=== PATIENT | female | born 1930 | race Caucasian/White ===

== ENCOUNTER 2016-10-25 00:25 | Inpatient (IN) | payer MEDICARE, BC ==
[~2016-10-25] VITALS: Ht 157.5 cm; Wt 60.6 kg
--- NOTE | ~2016-10-25 | CO ---
Unit #: [id number] #: [id number] Patient: PIPER VARGAS [id number] [address] [place], [place] [address] [id number] MR#: [id number] NAME: PIPER VARGAS ROOM: [facility] Age: 85 Sex: F Admission Date: 10/25/2016 : 1930 Attending Physician: Feliberto Bailey M.D. Primary Care Physician: Feliberto Bailey M.D. Consultation Date: 10/25/2016 CONSULTATION REPORT REASON FOR CONSULTATION 1. Rectal bleeding. 2. Blood loss anemia. Thank you very much for asking us to see Ms. Vargas. HISTORY OF PRESENT ILLNESS She is an 85-year-old white female, who overall was doing well until she had a bowel movement yesterday and showed quite a bit of bright red blood. She denies any hematemesis. She has had no melena. She is on aspirin on a regular basis as well as Coumadin. She came to the emergency room for evaluation. She was found to have an INR of 9.3 with a PT of 101.8. Her hemoglobin was found to be 8.8 with a normal MCV of 89.4. She received vitamin K and is in the process of receiving fresh frozen plasma. We were asked to see at this time for further evaluation. She states she has not had a colonoscopy first many years, but has a history of diverticulosis. She has been having regular bowel movements that have been normal prior to this time. She is on Coumadin for atrial fibrillation. Her family is present at the bedside. ALLERGIES No known medical allergies. MEDICATIONS Ranexa, Pravachol, Ecotrin, isosorbide dinitrate, K-Dur, Prilosec, Lasix, Norvasc, Coumadin, and Rythmol. PAST SURGICAL HISTORY Right knee replacement, lumpectomy of left breast, pacemaker placement, and hysterectomy. PAST MEDICAL HISTORY Heart disease, hypertension. SOCIAL HISTORY No tobacco or alcohol use. REVIEW OF SYSTEMS Negative except for above. IMMUNIZATION STATUS Unknown. FAMILY HISTORY Unit #: [id number] #: [id number] Patient: PIPER VARGAS Noncontributory. PHYSICAL EXAMINATION GENERAL: Well-developed, thin white female, in no apparent distress. Awake, alert, and oriented x3. VITAL SIGNS: Temperature is 98, pulse 83, respirations 18, blood pressure is 101/52. NECK: Supple. No thyromegaly or adenopathy. Sclerae nonicteric. Extraocular movements are intact. ABDOMEN: Flat, soft, mild diffuse tenderness, but no rebound, peritoneal signs, or masses. No palpable hernias. EXTREMITIES: No calf tenderness. No erythema. DIAGNOSTIC STUDIES LABORATORY RESULTS: Reveal the patient to have a CMP that shows a glucose of 104, BUN 36, and normal liver function studies. PT is 101.8 with an INR of 9.3. Her hemoglobin is 8.8 with a hematocrit 26.5, MCV of 89.4, white count is 7.1, platelet count 200,000. IMPRESSION An 85-year-old white female with bright red blood per rectum, who is significantly over anticoagulated. We have recommended . She has already received vitamin K and fresh frozen plasma. We will recheck this 1 hour after . After she has her coag studies at a safer level, we feel she should have upper and lower endoscopy performed. All this has been fully discussed with the patient's family in detail. They understand completely and requests to proceed. Dictated by... Zbigniew Pack/nancy TD: 10/25/2016 17:02 JOB #: [id number] CC: Feliberto Bailey M.D. [facility] Nirmal Shaw M.D. CONSULTATION REPORT Page 1 of 1 X Amadeo Lindsey MD X CONSULTATION REPORT
--- NOTE | ~2016-10-25 | CO ---
Unit #: [id number] #: [id number] Patient: PIPER GIL [id number] [facility]. [place], [place] [address] [id number] MR#: [id number] NAME: PIPER GIL ROOM: [facility] Age: 85 Sex: F Admission Date: 10/25/2016 : 1930 Attending Physician: Feliberto Bailey M.D. Primary Care Physician: Feliberto Bailey M.D. Consultation Date: 10/25/2016 CONSULTATION REPORT REASON FOR CONSULTATION Cardiovascular management. HISTORY OF PRESENT ILLNESS This is an 85-year-old white female, previously known to our group as well as Dr. Shaw. The patient underwent a 2D echocardiogram in 10/2010, which revealed ejection fraction of 55% to 60% with heavily calcified mitral apparatus, and moderate mitral regurgitation. There was also [id number] tricuspid regurgitation and mild aortic stenosis. Right ventricular systolic pressure was elevated at 40 to 50 mmHg. The patient was treated for atrial fibrillation in 2010. She underwent direct cardioversion with conversion to sinus rhythm. Subsequently, she underwent permanent pacemaker placement. She does have a history of coronary artery disease and underwent PCI and stent also in 2010, but details are unavailable. She follows with Dr. Shaw as an outpatient, but is reportedly overdue for an appointment. She has not had her pacemaker checked in a while. She presented to the emergency department with complaints of weakness that started yesterday. She states that she was called and told to increase her Coumadin. She took a dose of Coumadin, but does not recall how much. Later in the afternoon, she went to the bathroom and noticed bright red rectal bleeding. There was a large amount. EMS was dispatched and she was brought to the hospital. The patient admits to some dizziness, but no syncope. There are no reports of shortness of breath. She denies chest pain currently, but states that she did have an episode of chest pain last night that was in her left anterior chest. There was no radiation to the neck, jaw, shoulders, or arms. There were no associated symptoms. She denies palpitations or lower extremity edema. She states that she has been taking her medications, but cannot recall details of her Coumadin. According to documentation, she has dementia. In the emergency department, her initial hemoglobin was 8.8, platelets were 200. Chemistry was stable. INR was 9.3. She was given 10 mg of vitamin K x1 dose. She was admitted for further management and FFP was ordered. Cardiology was consulted for cardiovascular management. Gastroenterology has also been consulted for rectal bleeding. PAST MEDICAL HISTORY 1. Coronary artery disease, status post PCI and stent reportedly in 08/2010. Records unavailable. 2. 2D echocardiogram on 10/31/2010 revealed an ejection fraction 55% to 60%. Right ventricle and right atrium mildly dilated. Left atrium moderately dilated. Heavily calcified mitral apparatus. Moderate mitral Unit #: [id number] #: [id number] Patient: JEFFERY,PIPER regurgitation. Nrcg-ep-tphnydio tricuspid regurgitation. Mild aortic stenosis. Right ventricular systolic pressure of 40 to 50 mmHg. 3. Atrial fibrillation, status post direct current cardioversion with conversion to sinus rhythm, 10/31/2010. 4. Permanent pacemaker placement reportedly 11/2010. 5. Anemia with GI bleed, status post EGD in 10/2010 with medium hiatal hernia and mild gastritis. 6. Hypertension. 7. Hyperlipidemia. 8. GERD. 9. Osteoarthritis. 10. Dementia. 11. Hypothyroidism. 12. Nonsmoker. PAST SURGICAL HISTORY 1. Cardiac catheterization, PCI and stent. 2. EGD. 3. Colonoscopy. 4. DC cardioversion. 5. Permanent pacemaker. HOME MEDICATIONS Pravastatin 80 mg p.o. daily, warfarin 2 mg p.o. daily, Norvasc 10 mg p.o. daily, levothyroxine 150 mcg p.o. daily, metoprolol tartrate 12.5 mg p.o. b.i.d., Lasix 20 mg p.o. daily, amiodarone 200 mg p.o. daily, isosorbide dinitrate 30 mg p.o. daily, Prilosec 10 mg p.o. daily. ALLERGIES No known drug allergies. SOCIAL HISTORY The patient lives alone. She has a cane for ambulation. She is a lifetime nonsmoker. There are no reports of alcohol or illicit drug use. FAMILY HISTORY Significant for heart disease. Her brother has had reoperative coronary artery bypass grafting. REVIEW OF SYSTEMS Ten-point review of systems negative except for details noted above in HPI. PHYSICAL EXAMINATION VITAL SIGNS: Temperature 98, pulse 83, blood pressure 101/52. CONSTITUTIONAL: This is an 85-year-old white female, in no acute distress. SKIN: Warm and dry. NECK: Supple. No jugular vein distention. No hepatojugular reflux. Normal carotid upstrokes. No carotid bruits auscultated. HEART: S1 and S2. Irregularly irregular. No murmurs, rubs, or gallops. LUNGS: Bilateral breath sounds, but occasional wheezes, left greater than right. ABDOMEN: Soft, nontender, and nondistended. Positive bowel sounds auscultated in all 4 quadrants. No ascites noted. EXTREMITIES: Bilateral extremities have no pretibial or pitting edema. DP and PT pulses are 2+. Capillary refill is less than 2 seconds. DIAGNOSTIC STUDIES Unit #: [id number] #: [id number] Patient: PIPER GIL LABORATORY RESULTS: White blood cell count 7.1, hemoglobin 8.8, hematocrit 26.5, platelets 200. Sodium 138, potassium 4.6, chloride 106, CO2 of 27, BUN 36, creatinine 0.8, glucose 104, INR 9.3. CARDIOVASCULAR: EKG reveals ventricular paced rhythm with underlying atrial flutter. Left axis deviation. Left bundle-branch block. Age undetermined. IMPRESSION 1. Acute gastrointestinal bleed. 2. Anemia. 3. Supratherapeutic INR. 4. Recurrent atrial fibrillation, age undetermined. 5. History of permanent pacemaker. 6. Possible anginal equivalent with history of coronary artery disease, percutaneous coronary intervention and stent in 2010. 7. Hypertension. 8. Hyperlipidemia. 9. Dementia. 10. Hypothyroidism. PLAN 1. The patient presented to the hospital with complaints of rectal bleeding. She was admitted and started on Protonix and IV fluids. Gastroenterology was consulted. 2. INR was elevated at 9.3. She was given vitamin K and FFP. 3. We will continue with reversal of anticoagulation. 4. The patient's pacemaker will be interrogated to evaluate how long she has been in atrial fibrillation. 5. We will continue conservative management. If she has been in atrial fibrillation for long, we will stop amiodarone. That would make Coumadin control easier and safer. 6. The patient has mild wheezing on exam. We will obtain a chest x-ray and give one dose of IV Lasix. 7. Her labs and EKG will be trended. Dictated by... Nimisha Gamez APRN for Zbigniew aSntana TD: 10/27/2016 01:47 JOB #: [id number] CONSULTATION REPORT Page 1 of 1 X X CONSULTATION REPORT
--- NOTE | ~2016-10-25 | CO ---
Unit #: [id number] #: [id number] Patient: PIPER VARGAS [id number] [address] [place], [place] [address] [id number] I MR#: [id number] NAME: PIPER VARGAS ROOM: [facility] Age: 85 Sex: F Admission Date: 10/25/2016 : 1930 Attending Physician: Feliberto Bailey M.D. Primary Care Physician: Feliberto Bailey M.D. Consultation Date: 10/27/2016 CONSULTATION REPORT REASON FOR CONSULTATION ICU. HISTORY OF PRESENT ILLNESS An 85-year-old female, who carries a diagnosis of dementia, but gives a reasonable history. She apparently noticed bright red blood per rectum. She also was found to have Coumadin toxicity and has been reversed. Initial INR was 9.3. She underwent EGD and that formal report is pending, but apparently had ulcers and underwent intervention. She is in the intensive care unit. No active bleeding has been observed, although her hemoglobin has dropped a bit. She denies hematemesis, melena, hematochezia, although she noticed hematochezia prior to admission. She had some mild abdominal pain, but that has resolved. She denies chest pain or shortness of breath. PHYSICAL EXAMINATION GENERAL: Reveals an elderly female, in no acute distress. On low-flow oxygen. VITAL SIGNS: She is afebrile, pulse is 101, respiratory rate is 24, blood pressure is 107/55, weight 221 pounds. HEENT: Pupils are equal, round, and reactive to light. Sclerae anicteric. Head atraumatic. Mucous membranes are moist. NECK: Supple. No supraclavicular or cervical adenopathy appreciated. CHEST: Equal breath sounds. No wheeze, stridor, or consolidation. Posterior auscultation unremarkable. CARDIAC: Reveals a regular rhythm, possible soft murmur. No gallop. ABDOMEN: Soft, nontender. No hepatomegaly or rebound. EXTREMITIES: Show SCD stockings to be in place. There is some trace edema. NEUROLOGIC: Grossly intact. No focal motor or sensory deficits. SKIN: Warm and dry without rash. DIAGNOSTIC STUDIES IMAGING STUDIES: Chest x-ray, unremarkable. LABORATORY RESULTS: BUN is 15, creatinine is 0.9. Troponins are negative. INR now is normal. White blood cell count 7.3, hemoglobin 7.3, platelet count 114. Rhythm strips, atrial fibrillation. IMPRESSION 1. Gastrointestinal bleeding. 2. Atrial fibrillation. 3. Coumadin toxicity corrected. Unit #: [id number] #: [id number] Patient: PIPER VARGAS 4. Coronary artery disease. 5. Multiple medical problems listed above. PLAN Still anemic with possible bleeding, but no observed bleeding. She is hemodynamically stable. We will start pulmonary hygiene maneuvers and continued ICU observation. Thank you very much for allowing us to participate in the care of Ms. Vargas. Dictated by... Maykel Webber M.D. JOSE/nancy TD: 10/28/2016 06:29 JOB #: [id number] CC: Zbigniew Bain M.D. CONSULTATION REPORT Page 1 of 1 X Maykel Webber MD X CONSULTATION REPORT
--- NOTE | ~2016-10-25 | EKG ---
PATIENT: PIPER GIL UNIT #: [id number] Ventricular Rate: 68 BPM Atrial Rate: 64 BPM QRS Duration: 162 ms Q-T Interval: 522 ms QTC Calculation(Bezet): 555 ms Calculated R Robards: -35 degrees Calculated T Robards: 98 degrees Diagnosis Line: Demand pacemaker; interpretation is based on Diagnosis Line: intrinsic rhythm Diagnosis Line: Atrial fibrillation with premature ventricular or Diagnosis Line: aberrantly conducted complexes Diagnosis Line: Left axis deviation Diagnosis Line: Left bundle branch block Diagnosis Line: Abnormal ECG Diagnosis Line: No previous ECGs available Diagnosis Line: Confirmed by YOLANDA HUBER MD ([id number]) on 10/25/2016 Diagnosis Line: 11:14:59 PM INTERPRETING MD: MAYO DAVALOS
--- NOTE | ~2016-10-25 | DS ---
Unit #: [id number] #: [id number] Patient: PIPER GIL [id number] [address] [place], [place] [address] [id number] I MR#: [id number] NAME: PIPER GIL ROOM: 563 Age: 85 Sex: F Admission Date: 10/25/2016 : 1930 Discharge Date: 11/01/2016 Attending Physician: Feliberto Bailey M.D. Primary Care Physician: Feliberto Bailey M.D. DISCHARGE SUMMARY PRINCIPAL DISCHARGE DIAGNOSES 1. 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 2. Coumadin toxicity. 3. Severe anemia. 4. Coronary artery disease. 5. History of congestive heart failure. 6. Hypertension. 7. Hyperlipidemia. 8. Chronic atrial fibrillation. 9. Dementia. 10. Osteoarthritis. 11. Hypothyroidism. 12. Status post permanent pacemaker. PROCEDURES 1. Colonoscopy 10/26/16. 2. EGD with hemo clipping x2 Dieulafoy lesion third portion of the duodenum with injection of submucosal epinephrine of the Dieulafoy lesion. 3. Transfusion 2 units of FFP 10/25/16. 4. Transfusion 2 units of packed RBCs 10/25/16. 5. Transfusion 1 unit of packed RBCs 10/26/16. 6. Transfusion 1 unit packed RBCs 10/26/16. 7. Transfusion 2 units packed RBCs 10/27/16. CONSULTANTS 1. [facility]. 2. Dr. Faulkner. REASON FOR HOSPITALIZATION The patient is an 85-year-old white female with history of coronary artery disease, CHF, hypertension, hyperlipidemia, A fib, permanent pacemaker, chronic anticoagulation therapy, dementia, osteoarthritis, hypothyroidism. Presented to the emergency room with bright red blood per rectum. In the ER she had a hemoglobin of 8.8, an INR of 9.3, a BUN of 36. The rest of her labs were unremarkable. Last EGD was October of 2010, at which time she was found to have a hiatal hernia and gastritis. Her last colonoscopy was in April of 2010, and the patient was admitted. HOSPITAL COURSE The patient was admitted to the ICU. She was given vitamin K, FFP. Serial H and H's were obtained. SCDs were placed for DVT prophylaxis. She was made NPO, started on IV fluids. IV proton pump inhibitors. Surgery was Unit #: [id number] #: [id number] Patient: PIPER GIL consulted. It was discovered soon after admission per her family that the patient was taking a 3 mg warfarin instead of 1.5 mg, which was prescribed and written on her bottle, as explanation for her Coumadin toxicity. In any case, the patient's PT and INR was reversed quickly. Her hemoglobin fell. She required multiple blood transfusions as mentioned above. She eventually was stabilized and underwent EGD and colonoscopy on the . EGD showed a Dieulafoy lesion, which was injected with epinephrine and clipped. Colonoscopy was unremarkable. The patient developed some diarrhea, and stool for C. diff. was ordered, but no specimen was sent. It was sent once, but they stated it was a bad specimen, whatever that means, and the toxin was not performed. TSH was checked and was 0.59. Cardiac enzymes were checked and within normal limits. Lipid profile was checked with LDL of 36. Eventually her bleeding resolved. She developed some dysuria yesterday. Urinalysis was ordered. She had 2+ leukocytes with 10-25 white cells but no bacteria and nitrite negative and no other abnormalities. Her BMP, phos and mag this morning are completely normal except for a calcium of 8.1. Her PT-INR this morning, after being started back on a small dose of Coumadin, was 1.1. Her CBC this morning shows a hemoglobin of 10, which is stable. She had 2 bowel movements yesterday without any evidence of blood. 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 She is currently on healthy heart diet as tolerates. CURRENT MEDICATIONS 1. Warfarin 2 mg Sunday through Sunday (to be held if her INR is greater than 3). 2. Claritin 10 mg p.o. daily p.r.n. allergies. 3. Lopressor 25 mg p.o. b.i.d. 4. Lasix 20 mg p.o. daily p.r.n. edema. 5. Chloraseptic spray at the bedside for use p.r.n. 6. Tendoy 5/325 mg 1 tab t.i.d. p.r.n. pain. 7. Protonix 40 mg p.o. b.i.d. 8. Levothyroxine 150 mcg daily. 9. Isosorbide dinitrate 30 mg daily. FOLLOW-UP She needs to have a followup [employer] in 2 days. She has an INR ordered by cardiology for 11/07/16 to be called to the tobacco sorter's office. She also has a followup scheduled with them in 4-[address] Shaw (1) discharge. Dictated by... Feliberto Bailey M.D. TOSHIA/terence TD: 11/01/2016 14:15 JOB #: [id number] Unit #: [id number] #: [id number] Patient: PIPER GIL DISCHARGE SUMMARY Page 1 of 1 X Feliberto Bailey MD X DISCHARGE SUMMARY
--- NOTE | ~2016-10-25 | OR ---
Unit #: [id number] #: [id number] Patient: PIPER GIL [id number] [address] [place], [place] [address] [id number] I MR#: [id number] NAME: PIPER GIL ROOM: [facility] Date of Procedure: 10/26/2016 Admission Date: 10/25/2016 Surgeon: Amadeo Lindsey M.D. : 1930 Attending Physician: Feliberto Bailey M.D. Primary Care Physician: Feliberto Bailey M.D. OPERATIVE REPORT PREOPERATIVES DIAGNOSES 1. Gastrointestinal bleeding. 2. Blood loss anemia. POSTOPERATIVE DIAGNOSES 1. Gastrointestinal bleeding. 2. Blood loss anemia. PROCEDURES PERFORMED 1. Esophagogastroduodenoscopy x2. 2. Hemoclip x2 of Dieulafoy lesion, third portion of duodenum. 3. Injection of submucosal epinephrine of Dieulafoy lesion, third portion of duodenum. 4. Colonoscopy to terminal ileum. ANESTHESIA Monitored anesthesia care. FINDINGS The patient was found to have a bleeding Dieulafoy lesion at third portion of duodenum. Hemostasis was obtained with hemoclip x2 and submucosal epinephrine injection circumferentially with good hemostasis. The patient was found to have a large amount of old blood present within the terminal ileum and colon, but no evidence of active bleeding. SPECIMENS None. COMPLICATIONS None apparent. CONDITION The patient tolerated the procedure well. INDICATIONS FOR PROCEDURE The patient is an 85-year-old white female. She presented with GI bleeding and blood loss anemia. She was found to have an INR of 9.1. She had correction of this with vitamin K and FFP. She presents at this time for upper and lower endoscopy. DESCRIPTION OF PROCEDURE After obtaining informed consent, the patient was brought to the endoscopy Unit #: [id number] #: [id number] Patient: PIPER GIL suite and after adequate monitored anesthesia care, had the endoscope placed through the mouth into upper esophagus under direct vision. It was slowly advanced down the esophagus. There was blood present within the distal esophagus and in the stomach. It was only a moderate amount and appeared to be older blood. The scope was passed through the pylorus into the duodenum. There was a fair amount of bright red blood present in the duodenum and into the third and fourth portion of the duodenum. We were able to advance the scope into the jejunum and there appeared to be bright red blood present there as well. We were able to irrigate this area out and there did not appear to be any active bleeding in the proximal jejunum or in the fourth portion and at that point in time, we were unable to visualize a bleeding site in the third or second portion of the duodenum. The duodenal bulb was normal. The pylorus opened normally. In the stomach, the antrum was well inspected. There was no evidence of any bleeding. We were unable to retroflex back to the GE junction; however, on pulling the scope back, we were able to irrigate and suction and there was no evidence of any fresh blood present within the stomach and no active bleeding in the proximal stomach or mid stomach. On pulling back above the GE junction, the GE junction had no evidence of any abnormality or bleeding. The esophagus appeared normal and laryngeal structures were grossly normal as viewed from above. At this point in time, the colonoscope was placed through the anus slowly and carefully advanced with the lumen always in view to the level of the cecum. There was maroon blood present throughout. We were able to pass through the ileocecal valve into the terminal ileum. The terminal ileum had maroon-colored blood as well. We were able to irrigate out the terminal ileum well and it cleared easily. There did not appear to be any active bleeding or fresh blood present. The cecum was inspected and there was no abnormality. The colonoscope was slowly pulled back. The colon was circumferentially lavaged. It was well visualized and there was no evidence of any abnormality able to be seen and no evidence of any active bleeding present in the colon. The ascending colon was otherwise normal as was the hepatic flexure, transverse colon, splenic flexure, and descending colon, sigmoid colon, and rectum. We were unable to retroflex in the rectum, but on pulling back through the anal canal, there were no obvious abnormalities. On digital examination, there was good sphincter tone. No masses palpable. At this point in time, the new fresh endoscope was brought up after gowns and gloves were changed. The endoscope was placed back into the upper esophagus under direct vision. It was slowly advanced down the esophagus. There was no blood present in the esophagus and again it appeared normal. We were able to pass into the stomach and again there was minimal blood present within the stomach and again no abnormality could be visualized. We passed through the pylorus into the duodenum and there was fresh blood present in the second and third portion. With irrigation, we were able to identify a single bleeding point consistent with a Dieulafoy lesion. As we washed, it would clear and then would continually ooze in this one location. We were able to place a hemoclip x2 on this area with good hemostasis. After this, we had very good hemostasis; however, it was felt best to inject epinephrine submucosally as well. This was injected on four sides of the area. After this, it was well irrigated. There was good hemostasis. It was observed for 5 to 10 minutes about the clock and there was no active bleeding seen. The endoscope was pulled back into the stomach and then pulled up above the GE junction. The remaining portion of the esophagus was within normal limits. The patient tolerated the procedure well and went from the endoscopy suite to recovery area in stable condition. RECOMMENDATIONS Unit #: [id number] #: [id number] Patient: PIPER GIL Transfer to ICU for closer observation. Vital signs q.1 hour, serial hemoglobin and hematocrit, and follow the patient closely. If she develops symptoms of persistent bleeding, we may need repeat upper endoscopy or intervention by Interventional Radiology, or operative intervention. Dictated by... Zbigniew Pack/nancy TD: 10/26/2016 17:06 JOB #: [id number] CC: Zbigniew Garcia M.D. [facility] Maykel Webber M.D. OPERATIVE REPORT Page 1 of 1 X Amadeo Lindsey MD X PROCEDURE OPERATIVE NOTE
--- NOTE | ~2016-10-25 | HP ---
Unit #: [id number] #: [id number] Patient: PIPER GIL [id number] [address] [address] [id number] I MR#: [id number] NAME: PIPER GIL ROOM: 548 Age: 85 Sex: F Admission Date: 10/25/2016 : 1930 Attending Physician: Feliberto Bailey M.D. Primary Care Physician: Feliberto Bailey M.D. HISTORY AND PHYSICAL HISTORY OF PRESENT ILLNESS This 85-year-old white female with history of coronary artery disease, CHF, hypertension, hyperlipidemia, paroxysmal atrial fibrillation, chronic anticoagulation therapy, dementia, osteoarthritis and hypothyroidism is admitted for one episode of bright red blood per rectum. In the ER she had a hemoglobin of 8.8, her INR was 9.3, BUN was 36. The rest of her labs were unremarkable. Her last EGD was October of 2010, at which time she was found to have a hiatal hernia and mild gastritis. Her last colonoscopy was about April of 2010 without any results available in our chart, but she had no significant findings at that time other than possibly some diverticulosis but no polyps. In any case, she is admitted for reversal of her anticoagulation, followup on her hemoglobin and endoscopy. The patient denies any swallowing difficulty, abdominal pain. She has had no melena and has no other complaints at this time. ALLERGIES She has no known drug allergies. MEDS PRIOR TO ADMISSION 1. Pravachol 80 mg daily. 2. Warfarin 3 mg daily. 3. Norvasc 10 mg daily. 4. Levoxyl 150 mcg daily. 5. Metoprolol 12.5 mg b.i.d. 6. Lasix 20 mg daily. 7. Amiodarone 200 mg daily. 8. Imdur 30 mg daily. 9. Prilosec 20 mg daily. SURGICAL HISTORY 1. Total right knee replacement. 2. Left shoulder surgery. 3. Permanent pacemaker. 4. Left breast lumpectomy. PAST MEDICAL HISTORY 1. Coronary artery disease. 2. CHF. 3. Hypertension. 4. Hyperlipidemia. 5. Dementia. 6. Hypothyroidism. 7. Paroxysmal atrial fibrillation. 8. Permanent pacemaker. Unit #: [id number] #: [id number] Patient: PIPER GIL 9. Chronic anticoagulation therapy. SOCIAL HISTORY , nonsmoker, nondrinker, no street drug use. FAMILY HISTORY Family history is noncontributory. PHYSICAL EXAMINATION ER VITALS: Temp 98.6, pulse 96, respirations 18, blood pressure 139/61, room air O2 sat 99%. HEENT: Unremarkable, except for pale mucous membranes and conjunctiva. NECK: Neck was supple without JVD, bruits, adenopathy or thyromegaly. CHEST: Clear to auscultation. CARDIOVASCULAR: Heart has a regular rate and rhythm without any murmurs, rubs or gallops. ABDOMEN: Abdomen was soft, nondistended, nontender with positive bowel sounds and no hepatosplenomegaly. EXTREMITIES: Extremities showed no clubbing, cyanosis or edema. /RECTAL: Deferred. NEUROLOGIC: Exam is grossly intact. DIAGNOSTIC STUDIES LAB VALUES: Again, her CBC is normal except for a hemoglobin of 8.8 with normal indices. INR is 9.3, PTT 48.6. CMP is normal except for an albumin of 3.7, and BUN is 36. IMPRESSION 1. GI bleed. 2. Anemia. 3. Coumadin toxicity. 4. Dementia. 5. Hypertension. 6. Hyperlipidemia. 7. Paroxysmal atrial fibrillation. 8. CHF. 9. Coronary artery disease. 10. Hypothyroidism. PLAN Reverse anticoagulation with FFP and vitamin K. Serial H and H's. SCDs for DVT prophylaxis. NPO. IV fluids. Hold home meds. EGD and colonoscopy when feasible and stable. IV proton pump inhibitors for now. Further evaluation pending results of the above. Patient has trouble with memory, as mentioned above, and we have had trouble with her ProTimes in the office. May switch her to one of the new oral anticoagulation therapies if she is able to afford it and discontinue her Coumadin, which will help to prevent further issues with Coumadin toxicity and GI bleeding. Dictated by Feliberto Bailey M.D. TOSHIA/terence Unit #: [id number] #: [id number] Patient: PIPER GIL TD: 10/25/2016 07:59 JOB #: [id number] HISTORY AND PHYSICAL Page 1 of 1 X Feliberto Bailey MD HISTORY AND PHYSICAL
--- NOTE | ~2016-10-25 | CR72 ---
[facility] A Service of [facility] RADIOLOGY TEXT RESULTS PATIENT: PIPER GIL LOCATION: [facility] [id number] : 30 UNIT #: [id number] AGE: [address]: Feliberto Bailey MD SEX: F ORDER DR: [id number] [facility] [address] [place], [place] [address] [id number] MR#: [id number] Acc #: [id number] NAME: PIPER GIL : 1930 SEX: F STUDY DATE/TIME: 10/26/2016 09:26 UNIT: [facility] ROOM: [facility] STUDY DESCRIPTION: CR Chest Single View Portable Attending Physician: Feliberto Bailey M.D. Ordering Physician: Feliberto Bailey M.D. Primary Care Physician: Feliberto Bailey M.D. MEDICAL IMAGING REPORT This report is preliminary unless electronic signature is present EXAM Chest portable 10/26/2016 0926 hours HISTORY Cough, shortness of air with rectal bleeding for 2 days. COMPARISON 10/31/2010 FINDINGS Portable upright chest demonstrates normal heart size appearing decreased from 10/31/2010. There is calcification of the mitral annulus. There is a left subclavian dual lead pacer with leads over the right atrium and right ventricle. The lungs are well expanded. The lungs are clear and there are no effusions. IMPRESSION Normal heart size decreased from 10/31/2010. There is a dual lead left subclavian pacer with leads over the right atrium and right ventricle. The lungs are well expanded, likely with underlying emphysematous change. There is no acute pulmonary density and no effusion. Previous bilateral effusions have resolved. Dictated by... Fariba Frank M.D. THIS IS AN ELECTRONICALLY VERIFIED REPORT Fariba Frank M.D. at 10/26/2016 2:30 PM CORWIN/tommie TD: 10/26/2016 13:14 JOB #: [id number] [facility] A Service of [facility] RADIOLOGY TEXT RESULTS PATIENT: PIPER GIL LOCATION: [facility] [id number] : 30 UNIT #: [id number] AGE: [address]: Feliberto Bailey MD SEX: F ORDER DR: MEDICAL IMAGING REPORT Page 1 of 1 COPY
--- NOTE | ~2016-10-25 | EKG ---
PATIENT: PIPER GIL UNIT #: [id number] Ventricular Rate: 82 BPM Atrial Rate: 86 BPM QRS Duration: 158 ms Q-T Interval: 454 ms QTC Calculation(Bezet): 530 ms Calculated R [place]: -28 degrees Calculated T [place]: 95 degrees Diagnosis Line: Atrial fibrillation with premature ventricular or Diagnosis Line: aberrantly conducted complexes Diagnosis Line: Left bundle branch block Diagnosis Line: Abnormal ECG Diagnosis Line: When compared with ECG of 25-OCT-2016 10:31, Diagnosis Line: No significant change was found Diagnosis Line: Confirmed by YOLANDA HUBER MD ([id number]) on 10/30/2016 Diagnosis Line: 6:31:11 PM INTERPRETING MD: MAYO DAVALOS
[~2016-10-25 00:25] MED LIST: ALLEGRA180 MG PO; ALPRAZOLAM0.25 MG PO; AMLODIPINE BESY10 MG PO; ARTHROTEC 751 TAB.EC; ATENOLOL; ATENOLOL PO; CEFUROXIME250 MG PO; CORDARONE200 M1 PO; COUMADIN PO; COUMADIN4 MG PO; DARVOCET-N 1001 TAB PO; ECOTRIN325 MG PO; ECOTRIN81 M1 PO; FEROSUL325 ( 651 PO; FUROSEMIDE40 MG PO; HYDROCHLOROTHIA25 MG PO; HYDROCODON-ACE1 EAC7 PO; ISOSORBIDE DINI30 MG PO; K-DUR20 ME1 PO; LASIX PO; METOPROLOL TAR25 MG PO; NEXIUM; NORVASC; NORVASC PO; NORVASC10 MG PO; OMEPRAZOLE20 M2 PO; PLAVIX PO; PRAVACHOL20 MG PO; PRILOSEC PO; PRILOSEC20 MG PO; PRINIVIL20 M1 PO; PROTONIX PO; RANEXA500 MG PO; RYTHMOL PO; SIMVASTATIN20 MG PO; TYLENOL325 M1 PO; VITAMIN C500 M1 PO; [UNRECOGNIZED DRUG - OTHER] PO
[2016-10-25 03:07] LABS: BASOPHIL% 0.2 % (0-2.5); HEMATOCRIT 26.5 % (35.0-45.0); HEMOGLOBIN 8.8 gm/dL (12.0-16.0); LYMPHOCYTE# 0.8 X10e3 (1.0-3.5); MEAN CELL VOLUME 89.4 FL (83-96); MEAN CORPUSCULAR HEMOGLOBIN 29.6 PG (28-34); MEAN CORPUSCULAR HGB CONC 33.1 g/dL (30-36); MEAN PLATELET VOLUME 8.9 FL (6.5-11.5); MONOCYTE# 0.4 X10e3 (0-1.0); MONOCYTE% 6.2 % (3.0-12.0); NEUTROPHIL# 5.8 X10e3 (1.5-7.1); NEUTROPHIL% 81.6 % (40-75); PLATELET COUNT 200 X10e3 (140-420); RED BLOOD COUNT 2.96 X10e (3.90-5.30); RED CELL DISTRIBUTION WIDTH 14.4 % (11.0-15.5); WHITE BLOOD COUNT 7.1 X10e3 (4.0-10.5)
[2016-10-25 03:09] LABS: DIFF IND NO
[2016-10-25 03:33] LABS: PARTIAL THROMBOPLASTIN TIME 48.6 SECONDS (23.5-31.3); PROTHROMBIN TIME (PATIENT) 101.8 SECONDS (10.0-11.7)
[2016-10-25 03:39] LABS: ALBUMIN SERUM 2.7 g/dL (3.5-5.0); BILIRUBIN, DIRECT 0.1 mg/dL (0.0-0.2); BILIRUBIN,INDIRECT 0.3 mg/dL (0.0-0.9); BILIRUBIN,TOTAL 0.4 mg/dL (0.2-2.0); CALCIUM SERUM 8.4 mg/dL (8.4-10.2); CREATININE SERUM 0.8 mg/dL (0.6-1.4); GLOM FILT RATE Estimated 67.3 mL/min (>60); POTASSIUM 4.6 mmol/L (3.5-5.1); PROTEIN TOTAL SERUM 4.7 g/dL (6.0-8.3)
[2016-10-25 03:40] LABS: INR 9.3
[2016-10-25] MEDS ORDERED: METOPROLOL TAR25 MG PO (05:33)
[2016-10-25] MEDS ORDERED: ISOSORBIDE DINI30 MG PO (05:34)
[2016-10-25] MEDS ORDERED: AMIODARONE HCL200 MG PO (05:34)
[2016-10-25] MEDS ORDERED: LASIX20 MG PO (05:34)
[2016-10-25] MEDS ORDERED: PRILOSEC PO (05:35)
[2016-10-25] MEDS ORDERED: PRAVACHOL80 MG PO (05:36)
[2016-10-25] MEDS ORDERED: NORVASC10 MG PO (05:36)
[2016-10-25] MEDS ORDERED: WARFARIN SODIUM2 MG PO (05:36)
[2016-10-25] MEDS ORDERED: LEVOXYL150 MCG PO (05:37)
[2016-10-25 10:37] LABS: HEMATOCRIT 19.6 % (35.0-45.0)
[2016-10-25 10:41] LABS: HEMOGLOBIN 6.4 gm/dL (12.0-16.0)
[2016-10-25 10:57] LABS: CHOLESTEROL 87 mg/dL (0-200); HDL CHOLESTEROL 33 mg/dL (35-95); LDL CHOLESTEROL 36 mg/dL ([, -130]); LDL/HDL RATIO 1 RATIO (0-4); TRIGLYCERIDES 92 mg/dL (10-160)
[2016-10-25 11:13] LABS: %MB 4.2 % (0.0-4.0); MB 2.5 ng/ml
[2016-10-25 13:38] LABS: HEMATOCRIT 15.7 % (35.0-45.0); MEAN CELL VOLUME 91.2 FL (83-96); MEAN CORPUSCULAR HEMOGLOBIN 30.2 PG (28-34); MEAN CORPUSCULAR HGB CONC 33.1 g/dL (30-36); MEAN PLATELET VOLUME 9.1 FL (6.5-11.5); RED BLOOD COUNT 1.72 X10e (3.90-5.30); RED CELL DISTRIBUTION WIDTH 15.1 % (11.0-15.5)
[2016-10-25 13:41] LABS: HEMOGLOBIN 5.2 gm/dL (12.0-16.0)
[2016-10-25 14:12] LABS: INR 1.3
[2016-10-25 14:14] LABS: PROTHROMBIN TIME (PATIENT) 13.7 SECONDS (10.0-11.7)
[2016-10-25 16:23] LABS: %MB 4.2 % (0.0-4.0); MB 2.5 ng/ml
[2016-10-25 18:40] LABS: HEMATOCRIT 26.2 % (35.0-45.0)
[2016-10-25 18:43] LABS: HEMOGLOBIN 8.9 gm/dL (12.0-16.0)
[2016-10-25 22:30] LABS: HEMATOCRIT 26.7 % (35.0-45.0); HEMOGLOBIN 9.2 gm/dL (12.0-16.0)
[2016-10-26 02:43] LABS: HEMATOCRIT 24.4 % (35.0-45.0); HEMOGLOBIN 8.2 gm/dL (12.0-16.0); MEAN CELL VOLUME 90.1 FL (83-96); MEAN CORPUSCULAR HEMOGLOBIN 30.4 PG (28-34); MEAN CORPUSCULAR HGB CONC 33.8 g/dL (30-36); RED BLOOD COUNT 2.71 X10e (3.90-5.30); RED CELL DISTRIBUTION WIDTH 15.2 % (11.0-15.5)
[2016-10-26 03:06] LABS: INR 1.1; PROTHROMBIN TIME (PATIENT) 11.7 SECONDS (10.0-11.7)
[2016-10-26 03:15] LABS: BUN/CREATININE RATIO 27.5; CALCIUM SERUM 7.8 mg/dL (8.4-10.2); CREATININE SERUM 0.8 mg/dL (0.6-1.4); GLOM FILT RATE Estimated 67.3 mL/min (>60); MAGNESIUM 1.9 mg/dL (1.6-3.0); POTASSIUM 3.8 mmol/L (3.5-5.1)
[2016-10-26 11:03] LABS: HEMATOCRIT 24.1 % (35.0-45.0); HEMOGLOBIN 8.1 gm/dL (12.0-16.0)
[2016-10-26 19:12] LABS: BASOPHIL% 0.2 % (0-2.5); EOSINOPHIL% 0.3 % (0.0-7.0); HEMOGLOBIN 8.9 gm/dL (12.0-16.0); LYMPHOCYTE# 0.7 X10e3 (1.0-3.5); LYMPHOCYTE% 6.8 % (17.0-45.0); MEAN CELL VOLUME 92.7 FL (83-96); MEAN CORPUSCULAR HEMOGLOBIN 30.7 PG (28-34); MEAN CORPUSCULAR HGB CONC 33.1 g/dL (30-36); MEAN PLATELET VOLUME 9.5 FL (6.5-11.5); MONOCYTE# 0.9 X10e3 (0-1.0); MONOCYTE% 8.5 % (3.0-12.0); NEUTROPHIL# 9.1 X10e3 (1.5-7.1); NEUTROPHIL% 84.2 % (40-75); PLATELET COUNT 127 X10e3 (140-420); RED BLOOD COUNT 2.91 X10e (3.90-5.30); RED CELL DISTRIBUTION WIDTH 14.8 % (11.0-15.5); WHITE BLOOD COUNT 10.8 X10e3 (4.0-10.5)
[2016-10-26 19:17] LABS: DIFF IND NO
[2016-10-27 01:41] LABS: BASOPHIL% 0.2 % (0-2.5); DIFF IND YES; EOSINOPHIL% 0.4 % (0.0-7.0); HEMATOCRIT 22.5 % (35.0-45.0); HEMOGLOBIN 7.8 gm/dL (12.0-16.0); LYMPHOCYTE# 0.8 X10e3 (1.0-3.5); LYMPHOCYTE% 12.1 % (17.0-45.0); MEAN CELL VOLUME 90.6 FL (83-96); MEAN CORPUSCULAR HEMOGLOBIN 31.3 PG (28-34); MEAN CORPUSCULAR HGB CONC 34.5 g/dL (30-36); MEAN PLATELET VOLUME 8.7 FL (6.5-11.5); MONOCYTE# 0.8 X10e3 (0-1.0); MONOCYTE% 11.2 % (3.0-12.0); NEUTROPHIL# 5.3 X10e3 (1.5-7.1); NEUTROPHIL% 76.1 % (40-75); PLATELET COUNT 121 X10e3 (140-420); RED BLOOD COUNT 2.49 X10e (3.90-5.30); RED CELL DISTRIBUTION WIDTH 14.5 % (11.0-15.5)
[2016-10-27 02:26] LABS: PLATELET ESTIMATE DECREASED (NORMAL)
[2016-10-27 02:27] LABS: ANISOCYTOSIS SL
[2016-10-27 06:52] LABS: BASOPHIL% 0.2 % (0-2.5); EOSINOPHIL% 0.6 % (0.0-7.0); HEMATOCRIT 21.5 % (35.0-45.0); HEMOGLOBIN 7.3 gm/dL (12.0-16.0); LYMPHOCYTE# 1.6 X10e3 (1.0-3.5); LYMPHOCYTE% 22.6 % (17.0-45.0); MEAN CORPUSCULAR HEMOGLOBIN 30.9 PG (28-34); MEAN PLATELET VOLUME 9.2 FL (6.5-11.5); MONOCYTE# 0.8 X10e3 (0-1.0); MONOCYTE% 11.6 % (3.0-12.0); NEUTROPHIL# 4.7 X10e3 (1.5-7.1); PLATELET COUNT 140 X10e3 (140-420); RED BLOOD COUNT 2.36 X10e (3.90-5.30); RED CELL DISTRIBUTION WIDTH 14.8 % (11.0-15.5); WHITE BLOOD COUNT 7.3 X10e3 (4.0-10.5)
[2016-10-27 06:54] LABS: DIFF IND NO
[2016-10-27 06:59] LABS: INR 1.2; PROTHROMBIN TIME (PATIENT) 13.3 SECONDS (10.0-11.7)
[2016-10-27 07:19] LABS: ALBUMIN SERUM 2.2 g/dL (3.5-5.0); BILIRUBIN,TOTAL 0.4 mg/dL (0.2-2.0); BUN/CREATININE RATIO 16.66; CALCIUM SERUM 7.8 mg/dL (8.4-10.2); CREATININE SERUM 0.9 mg/dL (0.6-1.4); GLOM FILT RATE Estimated 58.3 mL/min (>60); POTASSIUM 4.2 mmol/L (3.5-5.1); PROTEIN TOTAL SERUM 3.8 g/dL (6.0-8.3)
[2016-10-27 13:49] LABS: HEMATOCRIT 29.1 % (35.0-45.0)
[2016-10-27 13:51] LABS: HEMOGLOBIN 10.2 gm/dL (12.0-16.0)
[2016-10-27 20:20] LABS: BASOPHIL% 0.2 % (0-2.5); EOSINOPHIL# 0.1 X10e3 (0-0.7); EOSINOPHIL% 1.2 % (0.0-7.0); HEMATOCRIT 28.7 % (35.0-45.0); HEMOGLOBIN 9.6 gm/dL (12.0-16.0); LYMPHOCYTE% 14.3 % (17.0-45.0); MEAN CELL VOLUME 91.5 FL (83-96); MEAN CORPUSCULAR HEMOGLOBIN 30.4 PG (28-34); MEAN CORPUSCULAR HGB CONC 33.3 g/dL (30-36); MEAN PLATELET VOLUME 8.8 FL (6.5-11.5); MONOCYTE# 0.7 X10e3 (0-1.0); MONOCYTE% 10.8 % (3.0-12.0); NEUTROPHIL% 73.5 % (40-75); PLATELET COUNT 125 X10e3 (140-420); RED BLOOD COUNT 3.14 X10e (3.90-5.30); RED CELL DISTRIBUTION WIDTH 14.3 % (11.0-15.5); WHITE BLOOD COUNT 6.9 X10e3 (4.0-10.5)
[2016-10-27 20:22] LABS: DIFF IND NO
[2016-10-28 03:29] LABS: BUN/CREATININE RATIO 16.25; CALCIUM SERUM 7.7 mg/dL (8.4-10.2); CREATININE SERUM 0.8 mg/dL (0.6-1.4); GLOM FILT RATE Estimated 67.3 mL/min (>60); POTASSIUM 4.3 mmol/L (3.5-5.1)
[2016-10-28 03:34] LABS: BASOPHIL% 0.2 % (0-2.5); EOSINOPHIL# 0.1 X10e3 (0-0.7); HEMATOCRIT 27.5 % (35.0-45.0); HEMOGLOBIN 9.4 gm/dL (12.0-16.0); LYMPHOCYTE# 1.4 X10e3 (1.0-3.5); LYMPHOCYTE% 17.9 % (17.0-45.0); MEAN CELL VOLUME 91.2 FL (83-96); MEAN CORPUSCULAR HEMOGLOBIN 31.1 PG (28-34); MEAN CORPUSCULAR HGB CONC 34.1 g/dL (30-36); MEAN PLATELET VOLUME 9.1 FL (6.5-11.5); MONOCYTE# 0.8 X10e3 (0-1.0); MONOCYTE% 11.1 % (3.0-12.0); NEUTROPHIL# 5.2 X10e3 (1.5-7.1); NEUTROPHIL% 68.8 % (40-75); PLATELET COUNT 133 X10e3 (140-420); RED BLOOD COUNT 3.02 X10e (3.90-5.30); RED CELL DISTRIBUTION WIDTH 14.6 % (11.0-15.5); WHITE BLOOD COUNT 7.6 X10e3 (4.0-10.5)
[2016-10-28 03:35] LABS: DIFF IND NO
[2016-10-28 11:07] LABS: HEMATOCRIT 27.2 % (35.0-45.0)
[2016-10-28 19:39] LABS: HEMATOCRIT 28.6 % (35.0-45.0); HEMOGLOBIN 9.7 gm/dL (12.0-16.0)
[2016-10-29 03:49] LABS: BASOPHIL% 0.1 % (0-2.5); EOSINOPHIL# 0.1 X10e3 (0-0.7); EOSINOPHIL% 1.5 % (0.0-7.0); HEMOGLOBIN 9.3 gm/dL (12.0-16.0); LYMPHOCYTE# 1.1 X10e3 (1.0-3.5); LYMPHOCYTE% 12.7 % (17.0-45.0); MEAN CELL VOLUME 92.8 FL (83-96); MEAN CORPUSCULAR HGB CONC 33.4 g/dL (30-36); MEAN PLATELET VOLUME 9.1 FL (6.5-11.5); MONOCYTE# 0.8 X10e3 (0-1.0); MONOCYTE% 8.9 % (3.0-12.0); NEUTROPHIL# 6.9 X10e3 (1.5-7.1); NEUTROPHIL% 76.8 % (40-75); PLATELET COUNT 167 X10e3 (140-420); RED BLOOD COUNT 3.02 X10e (3.90-5.30); RED CELL DISTRIBUTION WIDTH 14.9 % (11.0-15.5)
[2016-10-29 03:52] LABS: DIFF IND NO
[2016-10-29 04:02] LABS: INR 1.2; PROTHROMBIN TIME (PATIENT) 13.4 SECONDS (10.0-11.7)
[2016-10-29 04:34] LABS: ALBUMIN SERUM 2.3 g/dL (3.5-5.0); BILIRUBIN,TOTAL 0.7 mg/dL (0.2-2.0); BUN/CREATININE RATIO 18.33; CALCIUM SERUM 7.5 mg/dL (8.4-10.2); CREATININE SERUM 0.6 mg/dL (0.6-1.4); GLOM FILT RATE Estimated 83.1 mL/min (>60); MAGNESIUM 2.1 mg/dL (1.6-3.0); PHOSPHOROUS 2.2 mg/dL (2.5-4.6); POTASSIUM 4.5 mmol/L (3.5-5.1); PROTEIN TOTAL SERUM 4.4 g/dL (6.0-8.3)
[2016-10-30 07:46] LABS: HEMATOCRIT 27.6 % (35.0-45.0); HEMOGLOBIN 9.3 gm/dL (12.0-16.0); MEAN CELL VOLUME 93.1 FL (83-96); MEAN CORPUSCULAR HEMOGLOBIN 31.3 PG (28-34); MEAN CORPUSCULAR HGB CONC 33.6 g/dL (30-36); MEAN PLATELET VOLUME 8.7 FL (6.5-11.5); RED BLOOD COUNT 2.97 X10e (3.90-5.30); RED CELL DISTRIBUTION WIDTH 15.4 % (11.0-15.5); WHITE BLOOD COUNT 10.3 X10e3 (4.0-10.5)
[2016-10-30 08:22] LABS: BUN/CREATININE RATIO 15.71; CALCIUM SERUM 7.7 mg/dL (8.4-10.2); CREATININE SERUM 0.7 mg/dL (0.6-1.4); MAGNESIUM 2.2 mg/dL (1.6-3.0); POTASSIUM 4.8 mmol/L (3.5-5.1)
[2016-10-31 06:38] LABS: HEMATOCRIT 30.3 % (35.0-45.0); MEAN CELL VOLUME 93.8 FL (83-96); MEAN CORPUSCULAR HEMOGLOBIN 30.9 PG (28-34); MEAN PLATELET VOLUME 8.1 FL (6.5-11.5); RED BLOOD COUNT 3.23 X10e (3.90-5.30); RED CELL DISTRIBUTION WIDTH 15.4 % (11.0-15.5); WHITE BLOOD COUNT 10.4 X10e3 (4.0-10.5)
[2016-10-31 07:18] LABS: BUN/CREATININE RATIO 14.28; CREATININE SERUM 0.7 mg/dL (0.6-1.4); PHOSPHOROUS 2.3 mg/dL (2.5-4.6); POTASSIUM 4.2 mmol/L (3.5-5.1)
[2016-10-31 15:05] LABS: INR 1.1; PROTHROMBIN TIME (PATIENT) 11.5 SECONDS (10.0-11.7)
[2016-11-01 01:09] LABS: URINE APPEARANCE CLEAR; URINE BILIRUBIN NEG (NEG); URINE BLOOD NEG (NEG); URINE COLOR YELLOW; URINE GLUCOSE NEG (NEG); URINE KETONE NEG (NEG); URINE LEUKOCYTE ESTERASE 2+ (NEG); URINE NITRATE NEG (NEG); URINE PH 8.5 (5-8); URINE PROTEIN NEG (NEG); URINE SPECIFIC GRAVITY 1.006 (1.003-1.035); URINE UROBILINOGEN 0.2 MG/DL (NEG)
[2016-11-01 01:11] LABS: URBCS1 AUWI 0-2 /[HPF] (0-2); URINE BACTERIA AUWI NEG (NEGATIVE); URINE SQUAMOUS EPITHELIAL CELL NONE SEEN /[HPF]
[2016-11-01 07:15] LABS: MEAN CELL VOLUME 92.9 FL (83-96); MEAN CORPUSCULAR HEMOGLOBIN 31.1 PG (28-34); MEAN CORPUSCULAR HGB CONC 33.5 g/dL (30-36); MEAN PLATELET VOLUME 8.3 FL (6.5-11.5); RED BLOOD COUNT 3.23 X10e (3.90-5.30); RED CELL DISTRIBUTION WIDTH 14.9 % (11.0-15.5)
[2016-11-01 07:22] LABS: INR 1.1; PROTHROMBIN TIME (PATIENT) 11.4 SECONDS (10.0-11.7)
[2016-11-01 07:37] LABS: BUN/CREATININE RATIO 15.71; CALCIUM SERUM 8.1 mg/dL (8.4-10.2); CREATININE SERUM 0.7 mg/dL (0.6-1.4); MAGNESIUM 2.2 mg/dL (1.6-3.0); PHOSPHOROUS 2.8 mg/dL (2.5-4.6); POTASSIUM 4.4 mmol/L (3.5-5.1)
== END 2016-11-01 15:50 | DRG 330 ==
LOC: CED 00:25 → CEDOF 04:00 → C5C 04:00 → CED 04:06 → CEDOF 04:06 → C5B 05:24 → CEDOF 05:24 → CICCU3 10-26 16:51 → CICCU2 10-27 11:55 → C5C 10-29 09:35
PROVIDERS: Emergency Medicine; Internal Medicine; Internal Medicine Cardiovascular Disease; Nurse Practitioner Family; Surgery
PROC: 0DV Gastrointestinal System, Restriction (ICD-10-PCS; 2016-10-25)
PROC: 0DJD8ZZ Inspection of Lower Intestinal Tract, Via Natural or Artificial Opening Endoscopic (ICD-10-PCS; 2016-10-25)
PROC: 4B02XSZ Measurement of Cardiac Pacemaker, External Approach (ICD-10-PCS; 2016-10-25)
PROC: 3E0G8GC Introduction of Other Therapeutic Substance into Upper GI, Via Natural or Artificial Opening Endoscopic (ICD-10-PCS; principal; 2016-10-26 14:05)
PROC: 30233N1 Transfusion of Nonautologous Red Blood Cells into Peripheral Vein, Percutaneous Approach (ICD-10-PCS; 2016-10-30)
PROC: 30233K1 Transfusion of Nonautologous Frozen Plasma into Peripheral Vein, Percutaneous Approach (ICD-10-PCS; 2016-10-30)
PROC: 30233L1 Transfusion of Nonautologous Fresh Plasma into Peripheral Vein, Percutaneous Approach (ICD-10-PCS; 2016-10-30)
DX: K31.82 Dieulafoy lesion (hemorrhagic) of stomach and duodenum (principal); D62 Acute posthemorrhagic anemia; F03.90 Unspecified dementia, unspecified severity, without behavioral disturbance, psychotic disturbance, mood disturbance, and anxiety; I11.0 Hypertensive heart disease with heart failure; I50.32 Chronic diastolic (congestive) heart failure; I48.2 Chronic atrial fibrillation; I08.3 Combined rheumatic disorders of mitral, aortic and tricuspid valves; T45.515A Adverse effect of anticoagulants, initial encounter; I25.10 Atherosclerotic heart disease of native coronary artery without angina pectoris; E78.5 Hyperlipidemia, unspecified; M19.90 Unspecified osteoarthritis, unspecified site; E03.9 Hypothyroidism, unspecified; Z95.0 Presence of cardiac pacemaker; K21.9 Gastro-esophageal reflux disease without esophagitis; Z79.01 Long term (current) use of anticoagulants; Z82.49 Family history of ischemic heart disease and other diseases of the circulatory system; Z96.651 Presence of right artificial knee joint; D47.3 Essential (hemorrhagic) thrombocythemia
CPT/HCPCS: 36415; 71010; 80048; 80053; 80061; 80076; 81003; 82550; 82553; 83735; 84100; 84443; 84484; 85014; 85018; 85025; 85027; 85610; 85730; 86850; 86900; 86901; 86923; 87086; 87493; 93005; 94010; 94760; 97110; 97116; 97162; 97166; 97530; 97535; 99285; C9113; G8978-GP; G8979-GP; G8987-GO; G8988-GO; J0171; J1940; J2270; J2405; J2765; J3430; P9016; P9059